=== PATIENT | male | born 1975 | race Caucasian/White ===

== ENCOUNTER 2025-02-25 15:40 | Emergency (ER) | payer MEDICAID ==
[~2025-02-25] VITALS: Ht 162.6 cm; Wt 69.0 kg
[2025-02-25 15:43] VITALS: O2SAT 98
[2025-02-25] MEDS: MORPHINE SULFATE 4 MG/ML INJ (FOR IV/IM USE) IV STA (15:59)
[2025-02-25] MEDS: ONDANSETRON HCL 4MG/2ML INJ IV STA (15:59)
[2025-02-25] MEDS: TETANUS, DIPHTHERIA, PERTUSSIS VAC/PF 0.5ML (>10YR OLD) IM ONE (16:00)
[2025-02-25] MEDS: SODIUM CHLORIDE 0.9% 1,000 ML IV ONE (16:00)
[2025-02-25] MEDS: BACITRACIN ZINC OINT UDPKT TOP ONE (16:00)
[2025-02-25] MEDS: LIDOCAINE HCL/EPINEPHRINE 1%-EPI 1:100,000 20ML VIAL INFIL ONE (16:00)
[2025-02-25 18:04] VITALS: TEMP 37
[2025-02-25] MEDS ORDERED: CEPH500C2 MT (18:04)
[2025-02-25] MEDS ORDERED: IBUP-2029 MT (18:04)
[2025-02-25 19:01] VITALS: BP 119/73; PULSE 83; RESP 15; O2SAT 99
== END 2025-02-25 19:11 | disposition home or self-care (01) ==
LOC: ER 15:40
DX: S01.81XA Laceration without foreign body of other part of head, initial encounter (principal); X58.XXXA Exposure to other specified factors, initial encounter; Y93.89 Activity, other specified; Y92.89 Other specified places as the place of occurrence of the external cause; Y99.8 Other external cause status
CPT/HCPCS: 73502; 73552; 73590; 70450; 70486; 90715; 12002; 90471; 96361; 96374; 96375; 99285; J2004; J2405; J2270; J7030; Z7610 ×3